=== PATIENT | female | born 1985 ===

== ENCOUNTER → 2019-04-28 | Outpatient (CLI) | payer OTHER ==
[~2019-04-28] MED LIST: ADAL40PEN; MESA250ER PO
== END | disposition home or self-care (01) ==
LOC: LAB 15:00 → LAB SHORT 15:00
DX: Z34.03 Encounter for supervision of normal first pregnancy, third trimester (principal)
CPT/HCPCS: 87081; 87653

== ENCOUNTER 2019-05-19 11:03 | Inpatient (IN) | payer OTHER ==
[~2019-05-19] VITALS: Ht 180.3 cm; Wt 96.6 kg
[2019-05-21] MEDS ORDERED: PRENATAL TABLE1 EAC2 PO (09:13)
[2019-05-21 09:20] LABS: BASOPHILS ABSOLUTE AUTO 0.03 K/mm3 (0.00-0.23); BASOPHILS PERCENT AUTO 0 % (0-2); EOSINOPHILS ABSOLUTE AUTO 0.09 K/mm3 (0.00-0.68); EOSINOPHILS PERCENT AUTO 1 % (0-6); Hematocrit 34.5 % (33.0-51.0); Hemoglobin 11.4 g/dL (11.5-16.0); IMMATURE GRAN ABSOLUTE AUTO 0.05 K/mm3 (0.00-0.10); IMMATURE GRAN PERCENT AUTO 0 % (0-1); LYMPHOCYTES ABSOLUTE AUTO 1.83 K/mm3 (0.84-5.20); LYMPHOCYTES PERCENT AUTO 14 % (21-46); MONOCYTES ABSOLUTE AUTO 0.77 K/mm3 (0.16-1.47); MONOCYTES PERCENT AUTO 6 % (4-13); Mean Corpuscular Volume 82 fL (80-100); Mean Platelet Volume 11.2 fL (9.1-12.4); NEUTROPHILS ABSOLUTE AUTO 10.72 K/mm3 (1.96-9.15); NEUTROPHILS PERCENT AUTO 79 % (41-73); Platelet Count 211 K/mm3 (150-400); RDW Coefficient Variation 17.1 % (11.7-14.2); RDW Standard Deviation 50.5 fL (35.1-46.3); Red Blood Cell Count 4.22 M/mm3 (3.80-5.20); White Blood Cell Count 13.49 K/mm3 (4.00-11.30)
--- NOTE | 2019-05-22 08:07 | NUR ---
05/22/19 0807 Liv Bean 0756 DELIVERY VIABLE FEMALE INFANT WITH APGARS 9/9 ASSIGNED. UMBILICAL CORD BLOOD COLLECTED AND GIVEN TO YELITZA
[2019-05-22] MEDS ORDERED: ACET500 PO (13:49)
[2019-05-23 05:29] LABS: Hematocrit 32.4 % (33.0-51.0); Hemoglobin 10.5 g/dL (11.5-16.0); Mean Corpuscular HGB Conc 32.4 g/dL (31.5-36.5); Mean Corpuscular Volume 83 fL (80-100); Mean Platelet Volume 10.7 fL (9.1-12.4); Platelet Count 215 K/mm3 (150-400); RDW Coefficient Variation 17.7 % (11.7-14.2); RDW Standard Deviation 53.7 fL (35.1-46.3); Red Blood Cell Count 3.89 M/mm3 (3.80-5.20); White Blood Cell Count 14.21 K/mm3 (4.00-11.30)
[2019-05-23] MEDS ORDERED: PRENATAL TABLE1 EAC2 PO (16:28)
[2019-05-23] MEDS ORDERED: ROXICODONE5 MG PO (16:29)
--- NOTE | 2019-05-23 17:05 | NUR ---
PT GIVEN WRITTEN AND VERBAL DC INSTRUCTIONS. KNOWS TO CALL FOR ANY PROBLEMS OR CONCERNS ESPECIALLY WITH HER BOWEL AND GOING HOME EARLY WITHOUT PASSING GAS. QUESTIONS ANSWERED AND VERBALIZES UNDERSTANDING. WILL FOLLOW UP HERE AT [facility] 05/26/19 @ 1000 AND WITHIN 1-[address] BAUER OFFICE. KNOWS TO CALL FOR ANY SOONER PROBLEMS OR QUESTIONS. ROXICODONE PRESCRIPTION GIVEN.
--- NOTE | 2019-05-23 17:13 | NUR ---
PT STATES SHE HAS NOT PASSED GAS YET, HOWEVER WHEN SHE HAD HER OTHER BOWEL SURGERY SHE DID NOT PASS ENE FOR 7-[address] FINN AWARE OF HER NOT PASSING GAS BUT WALKING IN HALLWAYS AND TOLERATING WELL DESPITE HAVING SOME REFERRED GAS PAIN IN HER SHOULDERS. 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 PT AGREES TO PLAN IS HAPPY TO GO HOME TONIGHT.
== END 2019-05-23 17:24 | disposition home or self-care (01) | DRG 787 ==
LOC: BC 05-22 05:42
PROVIDERS: ADMIT Obstetrics & Gynecology
PROC: 10D00Z1 Extraction of Products of Conception, Low, Open Approach (ICD-10-PCS; principal; 2019-05-22 07:30)
DX: O32.1XX0 Maternal care for breech presentation, not applicable or unspecified (principal); K50.90 Crohn's disease, unspecified, without complications; O99.62 Diseases of the digestive system complicating childbirth; Z37.0 Single live birth; Z3A.39 39 weeks gestation of pregnancy
CPT/HCPCS: 36415; 85025; 85027; 86850; 86900; 86901; J0690; J2370; J2405; J2590; J2765; J3010; J7120

== ENCOUNTER → 2020-04-08 | Outpatient (CLI) | payer OTHER ==
[~2020-04-08] MED LIST changes: +ACET500 PO; +AUROVELA 1 MG-1 EAC1 PO; +FERROUS SULFAT325 M3 PO; +PRENATAL TABLE1 EAC2 PO; +ROXICODONE5 MG PO; +ZYRTEC10 M2 PO
[2020-04-08 12:17] LABS: Source, Urine Clean Catch
[2020-04-08 14:39] LABS: Appearance, Urine Clear (Clear); Bilirubin, Urine Neg (Neg); Blood, Urine 3+ (Neg); Color, Urine Yellow (P-Yellow); Glucose Qualitative, Urine Neg (Neg); Ketones, Urine Neg (Neg); Leukocyte Esterase, Urine Neg (Neg); Nitrite, Urine Neg (Neg); Protein, Urine Neg (Neg); Urobilinogen, Urine NORM (Normal)
[2020-04-08 14:55] LABS: White Blood Cells, Urine 0-2 /hpf (0-5)
[2020-04-08 14:56] LABS: Bacteria Few /hpf; Squamous Epithelial Cells Rare /hpf (Few)
== END | disposition home or self-care (01) ==
LOC: LAB SHORT 12:06 → LAB 12:06
PROVIDERS: Nurse Practitioner Family
DX: N39.0 Urinary tract infection, site not specified (principal)
CPT/HCPCS: 81001

== ENCOUNTER 2020-06-04 07:20 | Day surgery (SDC) | payer OTHER ==
[~2020-06-04] VITALS: Ht 180.3 cm; Wt 81.1 kg
== END 2020-06-04 09:21 | disposition home or self-care (01) ==
LOC: ORSCSDS 07:20
PROVIDERS: Internal Medicine Gastroenterology
PROC: 0DBP8ZX Excision of Rectum, Via Natural or Artificial Opening Endoscopic, Diagnostic (ICD-10-PCS; principal; 2020-06-04 08:30)
PROC: 0DBE8ZX Excision of Large Intestine, Via Natural or Artificial Opening Endoscopic, Diagnostic (ICD-10-PCS; principal; 2020-06-04 08:30)
DX: K50.813 Crohn's disease of both small and large intestine with fistula (principal); K64.8 Other hemorrhoids; K64.1 Second degree hemorrhoids; Z79.899 Other long term (current) drug therapy
CPT/HCPCS: 88305; J0330; J0461; J2250; J2405; J2704; J7120

== ENCOUNTER 2021-11-30 06:01 | Day surgery (SDC) | payer OTHER ==
[~2021-11-30] VITALS: Ht 180.3 cm; Wt 82.6 kg
[~2021-11-30 06:01] MED LIST changes: +FLONASE ALLERG9.9 M2
--- NOTE | 2021-11-30 07:45 | NUR ---
11/30/21 0745 Cale Weller PT ON PO ABX GIVEN IN PREOP. PT VOIDED IN PREOP.
--- NOTE | 2021-11-30 08:56 | NUR ---
Discharge instructions reviewed with patient. Patient verbalizes understanding. Copy given to patient to take home. SMALL AMOUNT OF DIME SIZE VAGINAL BLEEDING NOTED ON PAD. PT DENIES PAIN/NAUSEA.
== END 2021-11-30 08:57 | disposition home or self-care (01) ==
LOC: ORSCMMR 06:01 → ORD 07:30 → ORSCMMR 07:30
PROVIDERS: Obstetrics & Gynecology
PROC: 10D17ZZ Extraction of Products of Conception, Retained, Via Natural or Artificial Opening (ICD-10-PCS; principal; 2021-11-30 07:30)
DX: O02.1 Missed abortion (principal); K50.90 Crohn's disease, unspecified, without complications; Z79.899 Other long term (current) drug therapy
CPT/HCPCS: 88305; A9270; J1100; J1885; J2405; J2704; J3010; J7120

== ENCOUNTER → 2022-07-21 | Outpatient (CLI) | payer OTHER | LOC: LAB SHORT 10:00 → LAB 10:00 → LAB FUT 06-10 16:25 | DX: K50.813 Crohn's disease of both small and large intestine with fistula (principal) | CPT/HCPCS: 83993 ==

== ENCOUNTER → 2023-05-17 | Outpatient (CLI) | payer OTHER ==
[2023-05-17 14:00] LABS: Acinetobacter baumannii DNA Not Detected copy/mL (NOT DETECT); Adenovirus DNA Not Detected (NOT DETECT); Chlamydia pneumonia Not Detected (NOT DETECT); Enterobacter cloacae DNA Not Detected copy/mL (NOT DETECT); Escherichia coli DNA Not Detected copy/mL (NOT DETECT); Haemophilus influenzae DNA Detected Bin >=10^7 copy/mL (NOT DETECT); Human Coronavirus RNA Not Detected (NOT DETECT); Human Metapneumovirus RNA Not Detected (NOT DETECT); Klebsiella aerogenes DNA Not Detected copy/mL (NOT DETECT); Klebsiella oxytoca DNA Not Detected copy/mL (NOT DETECT); Klebsiella pneumoniae DNA Not Detected copy/mL (NOT DETECT); Legionella pneumophila Not Detected (NOT DETECT); Moraxella catarrhalis DNA Not Detected copy/mL (NOT DETECT); Mycoplasma pneumoniae Not Detected (NOT DETECT); Proteus sp DNA Not Detected copy/mL (NOT DETECT); Pseudomonas aeruginosa DNA Not Detected copy/mL (NOT DETECT); Serratia marcescens DNA Not Detected copy/mL (NOT DETECT); Staphylococcus aureus DNA Not Detected copy/mL (NOT DETECT); Streptococcus agalactiae DNA Not Detected copy/mL (NOT DETECT); Streptococcus pneumoniae DNA Not Detected copy/mL (NOT DETECT); Streptococcus pyogenes DNA Not Detected copy/mL (NOT DETECT)
[2023-05-17 14:01] LABS: Influenza virus A RNA Not Detected (NOT DETECT); Influenza virus B RNA Not Detected (NOT DETECT); Parainfluenza virus RNA Not Detected (NOT DETECT); Respiratory syncytial Vir RNA Not Detected (NOT DETECT); Rhinovirus+Enterovirus RNA Not Detected (NOT DETECT)
== END | disposition home or self-care (01) ==
LOC: LAB 08:52 → LAB SHORT 08:52
PROVIDERS: Nurse Practitioner Family
DX: R05.3 Chronic cough (principal)
CPT/HCPCS: 87070; 87077; 87185; 87205; 87633

== ENCOUNTER → 2024-05-30 | Outpatient (CLI) | payer BC ==
[2024-05-30 14:42] LABS: BASOPHILS ABSOLUTE AUTO 0.05 K/mm3 (0.00-0.23); BASOPHILS PERCENT AUTO 1 % (0-2); EOSINOPHILS ABSOLUTE AUTO 0.27 K/mm3 (0.00-0.68); EOSINOPHILS PERCENT AUTO 3 % (0-6); Hematocrit 38.6 % (33.0-51.0); IMMATURE GRAN ABSOLUTE AUTO 0.02 K/mm3 (0.00-0.10); IMMATURE GRAN PERCENT AUTO 0 % (0-1); LYMPHOCYTES ABSOLUTE AUTO 2.41 K/mm3 (0.84-5.20); LYMPHOCYTES PERCENT AUTO 29 % (21-46); MONOCYTES ABSOLUTE AUTO 0.44 K/mm3 (0.16-1.47); MONOCYTES PERCENT AUTO 5 % (4-13); Mean Corpuscular HGB 28.3 pg (26.0-34.0); Mean Corpuscular HGB Conc 33.7 g/dL (31.5-36.5); Mean Corpuscular Volume 84 fL (80-100); Mean Platelet Volume 11.4 fL (9.1-12.4); NEUTROPHILS ABSOLUTE AUTO 5.04 K/mm3 (1.96-9.15); NEUTROPHILS PERCENT AUTO 61 % (41-73); Platelet Count 247 K/mm3 (150-400); RDW Coefficient Variation 14.3 % (11.7-14.2); RDW Standard Deviation 43.8 fL (35.1-46.3); Red Blood Cell Count 4.59 M/mm3 (3.80-5.20); White Blood Cell Count 8.23 K/mm3 (4.00-11.30)
[2024-05-30 14:55] LABS: Ferritin, Serum 46 ng/mL (8-252); Iron Serum 75 ug/dL (50-170); LDL/HDL RATIO 1.4; Percent Saturation 28.4 % (15.0-50.0); Total Iron Binding Capacity 264 ug/dL (250-450); Very Low Density Lipoprot Chol 10 mg/dL (6-32)
[2024-05-30 14:56] LABS: Alanine Aminotransfer (ALT/SGP 23 U/L (12-78); Albumin, Blood 4.3 g/dL (3.4-5.0); Albumin/Globulin Ratio 0.9 (0.8-1.8); Alk Phos 50 U/L (50-136); Anion Gap 9 mmol/L (3-11); Aspartate Aminotrans (AST/SGOT 17 U/L (12-37); Bilirubin, Total 0.7 mg/dL (0.1-1.0); Blood Urea Nitrogen 17 mg/dL (8-24); Bun/Creatinine Ratio 21.5 (12.0-20.0); CHOL/HDL RATIO 2.6; CO2, Blood 26 mmol/L (21-32); Calcium, Blood 9.3 mg/dL (8.5-10.1); Chloride, Blood 105 mmol/L (98-108); Cholesterol 197 mg/dL (50-200); Creatinine, Blood 0.79 mg/dL (0.40-1.00); Globulin, Blood 4.7 g/dL (2.2-4.0); Glomerular Filtration Rate 96 (60-); Glucose, Blood 89 mg/dL (70-99); HDL Cholesterol 77 mg/dL (>39); Low Density Lipoprotein Chol 110 mg/dL (0-110); Potassium, Blood 3.8 mmol/L (3.5-5.5); Sodium, Blood 136 mmol/L (136-145); Triglycerides 52 mg/dL (30-160)
[2024-06-01 14:05] LABS: LIPOPROTEIN (A) 22 mg/dL (<=29)
== END ==
LOC: LAB SHORT 12:58 → LAB 12:58
PROVIDERS: Internal Medicine
DX: K50.90 Crohn's disease, unspecified, without complications (principal); E61.1 Iron deficiency; Z13.220 Encounter for screening for lipoid disorders
CPT/HCPCS: 80053; 80061; 82728; 83540; 83550; 83695; 85025; 86141

== ENCOUNTER → 2024-08-25 | Outpatient (CLI) | payer BC ==
[2024-08-25 14:37] LABS: BASOPHILS ABSOLUTE AUTO 0.06 K/mm3 (0.00-0.23); BASOPHILS PERCENT AUTO 1 % (0-2); EOSINOPHILS ABSOLUTE AUTO 0.27 K/mm3 (0.00-0.68); EOSINOPHILS PERCENT AUTO 4 % (0-6); Hematocrit 37.3 % (33.0-51.0); Hemoglobin 12.2 g/dL (11.5-16.0); IMMATURE GRAN ABSOLUTE AUTO 0.01 K/mm3 (0.00-0.10); IMMATURE GRAN PERCENT AUTO 0 % (0-1); LYMPHOCYTES ABSOLUTE AUTO 2.47 K/mm3 (0.84-5.20); LYMPHOCYTES PERCENT AUTO 32 % (21-46); MONOCYTES ABSOLUTE AUTO 0.50 K/mm3 (0.16-1.47); MONOCYTES PERCENT AUTO 6 % (4-13); Mean Corpuscular HGB Conc 32.7 g/dL (31.5-36.5); Mean Corpuscular Volume 86 fL (80-100); NEUTROPHILS ABSOLUTE AUTO 4.46 K/mm3 (1.96-9.15); NEUTROPHILS PERCENT AUTO 57 % (41-73); NRBC ABSOLUTE 0.00 K/mm3 (0.00-0.02); NRBC Auto 0.0 /100 WBC (0.0-0.2); Platelet Count 230 K/mm3 (150-400); RDW Coefficient Variation 14.3 % (11.7-14.2); RDW Standard Deviation 45.1 fL (35.1-46.3)
[2024-08-25 15:21] LABS: Alanine Aminotransfer (ALT/SGP 24.0 U/L (12-78); Albumin, Blood 4.3 g/dL (3.4-5.0); Albumin/Globulin Ratio 1.0 (0.8-1.8); Anion Gap 6.0 mmol/L (3-11); Aspartate Aminotrans (AST/SGOT 14.0 U/L (12-37); Bilirubin, Total 0.6 mg/dL (0.1-1.0); Blood Urea Nitrogen 15.0 mg/dL (8-24); C-REACTIVE PROTEIN, EXT RANGE 1.05 mg/dL (0.000-0.300); CO2, Blood 27.0 mmol/L (21-32); Calcium, Blood 8.8 mg/dL (8.5-10.1); Chloride, Blood 105.0 mmol/L (98-108); Creatinine, Blood 0.82 mg/dL (0.40-1.00); Ferritin, Serum 31.0 ng/mL (8-252); Globulin, Blood 4.4 g/dL (2.2-4.0); Glucose, Blood 90.0 mg/dL (70-99); Potassium, Blood 3.7 mmol/L (3.5-5.5); Sodium, Blood 134.0 mmol/L (136-145); Total Iron Binding Capacity 277.0 ug/dL (250-450); Total Protein, Blood 8.7 g/dL (6.4-8.2)
== END ==
LOC: LAB SHORT 13:13 → LAB 13:13
PROVIDERS: Nurse Practitioner Family
DX: K50.90 Crohn's disease, unspecified, without complications (principal); D50.9 Iron deficiency anemia, unspecified
CPT/HCPCS: 80053; 82728; 83540; 83550; 85025; 86140

== ENCOUNTER → 2024-11-17 | Outpatient (CLI) | payer BC ==
[2024-11-17 21:51] LABS: Ferritin, Serum 30.0 ng/mL (8-252)
== END ==
LOC: LAB SHORT 20:32 → LAB 20:32
PROVIDERS: Physician Assistant
DX: Z13.21 Encounter for screening for nutritional disorder (principal); K50.90 Crohn's disease, unspecified, without complications; Z79.620 Long term (current) use of immunosuppressive biologic
CPT/HCPCS: 82306; 82607; 82728; 82746